=== PATIENT | female | born 1975 | race Caucasian/White ===

== ENCOUNTER → 2023-12-09 07:38 | Outpatient (REF) | payer OTHER, BC, SELFPAY | LOC: WDC 07:38 | PROVIDERS: ATTENDING PHYSICIAN Obstetrics & Gynecology; FAMILY PHYSICIAN Physician Assistant | DX: Z12.31 Encounter for screening mammogram for malignant neoplasm of breast (principal) | CPT/HCPCS: 77063; 77067 ==

== ENCOUNTER 2024-12-06 06:27 | Day surgery (SDC) | payer OTHER, BC, SELFPAY | END 2024-12-06 09:57 | disposition home or self-care (01) | LOC: GI 06:27 | PROVIDERS: ATTENDING PHYSICIAN Internal Medicine Gastroenterology | DX: Z12.11 Encounter for screening for malignant neoplasm of colon (principal); D12.5 Benign neoplasm of sigmoid colon; K57.30 Diverticulosis of large intestine without perforation or abscess without bleeding; K64.8 Other hemorrhoids; K31.7 Polyp of stomach and duodenum; K31.89 Other diseases of stomach and duodenum; Z86.0100 Personal history of colon polyps, unspecified; Z87.19 Personal history of other diseases of the digestive system | CPT/HCPCS: 45380; 43239; 88305; 88342 ==

== ENCOUNTER → 2024-12-15 06:53 | Outpatient (REF) | payer OTHER, BC, SELFPAY | LOC: WDC 06:53 | PROVIDERS: ATTENDING PHYSICIAN Obstetrics & Gynecology; FAMILY PHYSICIAN Physician Assistant | DX: Z12.31 Encounter for screening mammogram for malignant neoplasm of breast (principal) | CPT/HCPCS: 77063; 77067 ==